=== PATIENT | male | born 1970 | race Caucasian/White ===

== ENCOUNTER 2017-07-15 04:19 | Emergency (ER) | payer MEDICAID ==
[~2017-07-15] VITALS: Ht 170.2 cm; Wt 82.0 kg
[~2017-07-15 04:19] MED LIST: ASPI-1159 PO; INSU3INS6 SQ; LISI40TA4 PO; LOVA40TA73 PO
[2017-07-15] MEDS ORDERED: SODIUM CHLORIDE 0.9% 1,000 ML IV ONE (05:15)
[2017-07-15] MEDS ORDERED: ONDANSETRON HCL 4MG/2ML VIAL IV STA (05:15)
[2017-07-15 05:34] LABS: BASOPHILS % 0.5 % (0.0-2.0); EOSINOPHILS % 0.1 % (0.0-5.0); HEMATOCRIT. 42.7 % (42.0-52.0); LYMPHOCYTES % 20.9 % (20.0-50.0); MEAN CORPUSCULAR HEMOGLOBIN 32.1 pg (28.0-32.0); MEAN CORPUSCULAR VOLUME 91.3 fL (80.0-94.0); MEAN PLATELET VOLUME 7.6 fl (7.4-10.4); MONOCYTES % 10.2 % (2.0-8.0); NEUTROPHILS % 68.3 % (40.0-76.0); PLATELET 205 x1000/uL (130-400); RED BLOOD CELL COUNT 4.67 mill/uL (4.7-6.1); RED CELL DISTRIBUTION WIDTH 13.6 % (11.6-14.6)
[2017-07-15 05:45] LABS: CARBON DIOXIDE 28 mEq/L (21-32); CHLORIDE 103 mEq/L (98-107)
[2017-07-15] MEDS ORDERED: LORAZEPAM 1MG TABLET PO ONE (05:45)
[2017-07-15] MEDS ORDERED: POTASSIUM CHLORIDE 20MEQ TABLET SR PO ONE (06:00)
[2017-07-15 06:25] VITALS: BP 165/91
== END 2017-07-15 06:26 | disposition home or self-care (01) ==
LOC: ER 04:34
DX: K29.20 Alcoholic gastritis without bleeding (principal); I10 Essential (primary) hypertension; E78.00 Pure hypercholesterolemia, unspecified; Z79.4 Long term (current) use of insulin; Z79.82 Long term (current) use of aspirin
CPT/HCPCS: 36415; 80053; 83690; 85025; 96361; 96374; 99284; J2405; J7030; Z7610

== ENCOUNTER 2018-10-17 10:53 | Inpatient (IN) | payer MEDICAID ==
[~2018-10-17] VITALS: Ht 177.8 cm; Wt 73.9 kg
[2018-10-17] MEDS ORDERED: SODIUM CHLORIDE 0.9% 1,000 ML IV ONE ×3 (11:15→21:30)
[2018-10-17] MEDS ORDERED: LORAZEPAM 2MG/ML CPJ IV ONE ×4 (11:15→21:15)
[2018-10-17 11:54] LABS: BASOPHILS % 0.1 % (0.0-2.0); HEMATOCRIT. 49.1 % (42.0-52.0); HEMOGLOBIN. 17.3 g/dL (14.0-18.0); LYMPHOCYTES % 10.7 % (20.0-50.0); MEAN CORPUSCULAR HEMOGLOBIN 32.8 pg (28.0-32.0); MEAN CORPUSCULAR VOLUME 93.2 fL (80.0-94.0); MEAN PLATELET VOLUME 8.9 fl (7.4-10.4); MONOCYTES % 4.9 % (2.0-8.0); NEUTROPHILS % 84.3 % (40.0-76.0); PLATELET 211 x1000/uL (130-400); RED BLOOD CELL COUNT 5.27 mill/uL (4.7-6.1); RED CELL DISTRIBUTION WIDTH 12.6 % (11.6-14.6)
[2018-10-17 12:06] LABS: CHLORIDE 95 mEq/L (98-107)
[2018-10-17 12:10] LABS: ETHANOL BLOOD 192 mg/dL
[2018-10-17] MEDS ORDERED: FOLIC ACID 1 MG, THIAMINE HCL 100 MG, MVI, ADULT NO.1 10 ML in DEXTROSE 5% WATER 1,000 ML IV ONE ×4 (12:30)
[2018-10-17] MEDS ORDERED: IBUPROFEN 400MG TABLET PO ONE (12:30)
[2018-10-17] MEDS ORDERED: POTASSIUM CHLORIDE 20MEQ TABLET SR PO ONE (12:30)
[2018-10-17 14:06] LABS: *BENZODIAZEPINES SCREEN URINE NEGATIVE (NEGATIVE); METHADONE URINE SCREEN NEGATIVE (NEGATIVE); OPIATES URINE SCREEN NEGATIVE (NEGATIVE)
[2018-10-17 14:07] LABS: CANNABINOID URINE SCREEN NEGATIVE (NEGATIVE)
[2018-10-17 14:08] LABS: *BARBITURATES SCREEN URINE NEGATIVE (NEGATIVE)
[2018-10-17 14:20] LABS: *COCAINE SCREEN URINE NEGATIVE (NEGATIVE)
[2018-10-17 14:22] LABS: *AMPHETAMINES SCREEN URINE PRESUMTIVE POSITIVE (NEGATIVE); PHENCYCLIDINE URINE SCREEN NEGATIVE (NEGATIVE)
[2018-10-17] MEDS ORDERED: ACETAMINOPHEN 325MG TABLET PO ONE (21:15)
[2018-10-17 21:24] LABS: CLARITY URINE CLEAR (CLEAR); COLOR URINE YELLOW (YELLOW); KETONES URINE 4+ (NEGATIVE); LEUKOCYTE ESTERASE URINE NEGATIVE (NEGATIVE); NITRITE URINE NEGATIVE (NEGATIVE); OCCULT BLOOD URINE 1+ (NEGATIVE); PH URINE 6.5 (4.5-8.0); PROTEIN URINE 2+ (NEGATIVE); SPECIFIC GRAVITY URINE 1.021 (1.005-1.030)
[2018-10-17] MEDS ORDERED: DOCUSATE SODIUM 100MG CAPSULE PO PRN (21:45)
[2018-10-17] MEDS ORDERED: HYDROCODONE/ACETAMINOPHEN 5/325MG TABLET PO PRN (21:45)
[2018-10-17] MEDS ORDERED: MAGNESIUM/ALUMINUM HYDROXIDE/SIMETHICONE 30ML UDC PO PRN (21:45)
[2018-10-17] MEDS ORDERED: ACETAMINOPHEN 325MG TABLET PO PRN (21:45)
[2018-10-17] MEDS ORDERED: ONDANSETRON HCL 4MG/2ML INJ IV PRN (21:45)
[2018-10-17] MEDS ORDERED: IPRATROPIUM/ALBUTEROL 0.5-3(2.5)MG/3ML NEB INH PRN (21:45)
[2018-10-18] VITALS (9 sets, daily range): BP systolic 112–150; BP diastolic 59–108
[2018-10-18] MEDS ORDERED: SODIUM CHLORIDE 0.9% 1,000 ML IV SCH (01:18)
[2018-10-18] MEDS: CHLORDIAZEPOXIDE 25MG CAPSULE PO SCH ×4 (01:21→21:16)
[2018-10-18] MEDS: CLONIDINE 0.1MG TABLET PO PRN ×2 (01:42→08:39)
[2018-10-18 02:14] LABS: CREATINE KINASE MB FRACTION 33.2 ng/mL (0.5-3.6)
[2018-10-18] MEDS: MULTIVITAMINS,THER W-MINERALS TABLET PO SCH (08:23)
[2018-10-18] MEDS: FOLIC ACID 1MG TABLET PO SCH (08:23)
[2018-10-18] MEDS: THIAMINE HCL 100MG TABLET PO SCH (08:23)
[2018-10-18] MEDS: ENOXAPARIN 40MG/0.4ML SYR SUBCUT SCH (08:49)
[2018-10-18] MEDS ORDERED: ONDANSETRON HCL 4MG/2ML INJ IM ONE (09:45)
[2018-10-18] MEDS ORDERED: ONDANSETRON HCL 4MG/2ML INJ IV ONE (10:00)
[2018-10-18 10:30] LABS: BASOPHILS % 0.3 % (0.0-2.0); HEMATOCRIT. 49.7 % (42.0-52.0); HEMOGLOBIN. 17.3 g/dL (14.0-18.0); LYMPHOCYTES % 31.9 % (20.0-50.0); MEAN CORPUSCULAR HEMOGLOBIN 33.1 pg (28.0-32.0); MEAN CORPUSCULAR VOLUME 94.8 fL (80.0-94.0); MEAN PLATELET VOLUME 8.9 fl (7.4-10.4); MONOCYTES % 6.4 % (2.0-8.0); NEUTROPHILS % 60.4 % (40.0-76.0); PLATELET 174 x1000/uL (130-400); RED BLOOD CELL COUNT 5.24 mill/uL (4.7-6.1)
[2018-10-18] MEDS ORDERED: INFLUENZA VIRUS VACCINE(AFLURIA) 0.5ML SYR IM ONE (10:30)
[2018-10-18] MEDS: LORAZEPAM 2MG/ML CPJ IV PRN ×2 (12:26→19:17)
[2018-10-18] MEDS ORDERED: DEXTROSE 50% WATER 50ML SYRINGE IV PRN (12:45)
[2018-10-18] MEDS: SODIUM CHLORIDE 0.9% 1,000 ML IV SCH ×2 (12:45→22:45)
[2018-10-18] MEDS: INSULIN LISPRO 100 UNITS/ML SUBCUT SCH ×3 (13:00→21:21)
[2018-10-18 13:35] LABS: CHLORIDE 91 mEq/L (98-107)
[2018-10-18 13:45] LABS: T4 FREE 1.17 ng/dL (0.76-1.46)
[2018-10-18 13:59] LABS: CREATINE KINASE MB FRACTION 30.8 ng/mL (0.5-3.6)
[2018-10-18] MEDS ORDERED: CHLORDIAZEPOXIDE 25MG CAPSULE PO SCH (14:00)
[2018-10-18 14:05] LABS: HDL CHOLESTEROL 98 mg/dL (40-59); LDL CHOLESTEROL 125 mg/dL (5-100)
[2018-10-18] MEDS: LISINOPRIL 40MG TABLET PO SCH (15:21)
[2018-10-18] MEDS: BLOOD SUGAR DIAGNOSTIC STRIP TEST SCH ×2 (17:58→21:21)
[2018-10-18] MEDS: AMLODIPINE 2.5MG TABLET PO SCH (21:16)
[2018-10-18] MEDS: METOPROLOL TARTRATE 25MG TABLET PO SCH (21:16)
[2018-10-18] MEDS: INSULIN GLARGINE UD 100 UNITS/ML SYR SUBCUT SCH (21:20)
[2018-10-19] VITALS (10 sets, daily range): BP systolic 91–135; BP diastolic 46–86
[2018-10-19] MEDS: CHLORDIAZEPOXIDE 25MG CAPSULE PO SCH ×2 (06:11→15:03)
[2018-10-19 06:12] LABS: CHLORIDE 95 mEq/L (98-107)
[2018-10-19 06:21] LABS: CREATINE KINASE 955 IU/L (39-308)
[2018-10-19 07:07] LABS: INR 1.1; PROTHROMBIN TIME 11.1 sec (9.1-11.1)
[2018-10-19] MEDS: INSULIN LISPRO 100 UNITS/ML SUBCUT SCH ×2 (08:00→13:00)
[2018-10-19] MEDS: BLOOD SUGAR DIAGNOSTIC STRIP TEST SCH ×2 (08:02→13:20)
[2018-10-19] MEDS: ENOXAPARIN 40MG/0.4ML SYR SUBCUT SCH (08:03)
[2018-10-19] MEDS: THIAMINE HCL 100MG TABLET PO SCH (08:12)
[2018-10-19] MEDS: FOLIC ACID 1MG TABLET PO SCH (08:12)
[2018-10-19] MEDS: MULTIVITAMINS,THER W-MINERALS TABLET PO SCH (08:12)
[2018-10-19] MEDS: LISINOPRIL 40MG TABLET PO SCH ×2 (08:12→08:14)
[2018-10-19] MEDS: AMLODIPINE 2.5MG TABLET PO SCH (08:13)
[2018-10-19] MEDS: METOPROLOL TARTRATE 25MG TABLET PO SCH (08:13)
[2018-10-19] MEDS: SODIUM CHLORIDE 0.9% 1,000 ML IV SCH (08:14)
[2018-10-19] MEDS: INSULIN GLARGINE UD 100 UNITS/ML SYR SUBCUT SCH (11:00)
[2018-10-19] MEDS ORDERED: AMLO2.5T45 PO (13:09)
[2018-10-19] MEDS ORDERED: THIA100T72 PO (13:09)
[2018-10-19] MEDS ORDERED: FOLI-43 PO (13:09)
[2018-10-19] MEDS ORDERED: LANTUSUD SUBCUT (13:09)
[2018-10-19] MEDS ORDERED: LISI40TA4 PO (13:09)
[2018-10-19] MEDS ORDERED: L25 PO (13:09)
== END 2018-10-19 16:20 | disposition home or self-care (01) | DRG 203 ==
LOC: ER 10:59 → 5EST 21:31 → EDBEDREQ 21:35 → CANRESERV 21:57 → ENRESERV 21:57 → EDBEDREQTM 10-18 00:29 → EDBEDREQSVC 10-18 00:29 → EDBEDREQDT 10-18 00:29 → ENRESERV 10-18 03:10 → 5EST 10-18 08:35
PROVIDERS: ADMIT Internal Medicine; ATTEND Internal Medicine
DX: R07.9 Chest pain, unspecified (principal); E87.2 Acidosis; M62.82 Rhabdomyolysis; K70.30 Alcoholic cirrhosis of liver without ascites; E87.6 Hypokalemia; F10.229 Alcohol dependence with intoxication, unspecified; F14.10 Cocaine abuse, uncomplicated; E11.9 Type 2 diabetes mellitus without complications; Z79.4 Long term (current) use of insulin; E78.00 Pure hypercholesterolemia, unspecified; E78.5 Hyperlipidemia, unspecified; Z79.899 Other long term (current) drug therapy; I11.9 Hypertensive heart disease without heart failure
CPT/HCPCS: 36415; 71045; 80048; 80061; 80076; 80305; 82550; 82553; 82962; 83036; 83605; 83735; 84439; 84443; 84481; 84484; 90686; 93005; 93306; 93970; 96365; 96375; 99285; G0482; J1650; J1815; J2060; J2405; J3411; J3490; J7030; J7070

== ENCOUNTER 2019-04-12 00:30 | Emergency (ER) | payer MEDICAID ==
[~2019-04-12] VITALS: Ht 198.1 cm; Wt 82.0 kg
[~2019-04-12 00:30] MED LIST changes: +AMLO2.5T45 PO; -ASPI-1159 PO; +ASPI-1393 PO; +FOLI-43 PO; -INSU3INS6 SQ; +L25 PO; +LANTUSUD SUBCUT; +THIA100T72 PO
[2019-04-12] MEDS ORDERED: MORPHINE SULFATE 4 MG/ML CPJ (NOT FOR IM USE) IV STA (01:50)
[2019-04-12] MEDS ORDERED: ONDANSETRON HCL 4MG/2ML INJ IV STA (01:50)
[2019-04-12] MEDS ORDERED: SODIUM CHLORIDE 0.9% 1,000 ML IV ONE (01:50)
[2019-04-12 02:17] LABS: *AMPHETAMINES SCREEN URINE NEGATIVE (NEGATIVE); *BARBITURATES SCREEN URINE NEGATIVE (NEGATIVE); *BENZODIAZEPINES SCREEN URINE PRESUMTIVE POSITIVE (NEGATIVE); *COCAINE SCREEN URINE NEGATIVE (NEGATIVE)
[2019-04-12 02:18] LABS: CANNABINOID URINE SCREEN NEGATIVE (NEGATIVE); METHADONE URINE SCREEN NEGATIVE (NEGATIVE); OPIATES URINE SCREEN NEGATIVE (NEGATIVE); PHENCYCLIDINE URINE SCREEN NEGATIVE (NEGATIVE)
[2019-04-12 02:22] LABS: BASOPHILS % 0.6 % (0.0-2.0); EOSINOPHILS % 0.5 % (0.0-5.0); HEMATOCRIT. 44.7 % (42.0-52.0); HEMOGLOBIN. 15.7 g/dL (14.0-18.0); LYMPHOCYTES % 39.9 % (20.0-50.0); MEAN CORPUSCULAR HEMOGLOBIN 33.4 pg (28.0-32.0); MEAN CORPUSCULAR VOLUME 95.1 fL (80.0-94.0); MEAN PLATELET VOLUME 7.6 fl (7.4-10.4); MONOCYTES % 11.8 % (2.0-8.0); NEUTROPHILS % 47.2 % (40.0-76.0); PLATELET 245 x1000/uL (130-400); RED CELL DISTRIBUTION WIDTH 13.9 % (11.6-14.6)
[2019-04-12 02:25] LABS: CHLORIDE 101 mEq/L (98-107)
[2019-04-12 02:29] LABS: INR 0.9; PROTHROMBIN TIME 9.5 sec (9.6-11.0)
[2019-04-12 03:08] LABS: ETHANOL BLOOD 326 mg/dL
[2019-04-12] MEDS ORDERED: CHLORDIAZEPOXIDE 25MG CAPSULE PO ONE (06:30)
[2019-04-12 08:32] VITALS: BP 124/88
== END 2019-04-12 08:38 | disposition home or self-care (01) ==
LOC: ER 00:30
DX: S09.8XXA Other specified injuries of head, initial encounter (principal); T51.91XA Toxic effect of unspecified alcohol, accidental (unintentional), initial encounter; F32.9 Major depressive disorder, single episode, unspecified; E11.9 Type 2 diabetes mellitus without complications; I10 Essential (primary) hypertension; E78.00 Pure hypercholesterolemia, unspecified; Z79.4 Long term (current) use of insulin; Z79.82 Long term (current) use of aspirin; Z79.899 Other long term (current) drug therapy; W19.XXXA Unspecified fall, initial encounter; Y92.89 Other specified places as the place of occurrence of the external cause; Y93.89 Activity, other specified; Y99.8 Other external cause status
CPT/HCPCS: 36415; 70450; 71045; 72125; 80053; 80305; 80307; 80320; 80329; 82962; 85025; 85610; 85730; 93005; 96374; 96375; 99284; J2270; J2405; J7030; Z7610; G0480

== ENCOUNTER 2019-05-02 02:33 | Emergency (ER) | payer MEDICAID ==
[~2019-05-02] VITALS: Ht 172.7 cm; Wt 81.0 kg
[2019-05-02] MEDS ORDERED: METOCLOPRAMIDE HCL 10MG/2ML VIAL IV STA (04:16)
[2019-05-02] MEDS ORDERED: MAGNESIUM/ALUMINUM HYDROXIDE/SIMETHICONE 30ML UDC PO STA (04:16)
[2019-05-02] MEDS ORDERED: SODIUM CHLORIDE 0.9% 1,000 ML IV ONE ×2 (04:16→05:01)
[2019-05-02 04:29] LABS: CLARITY URINE CLEAR (CLEAR); COLOR URINE YELLOW (YELLOW); KETONES URINE NEGATIVE (NEGATIVE); LEUKOCYTE ESTERASE URINE NEGATIVE (NEGATIVE); NITRITE URINE NEGATIVE (NEGATIVE); OCCULT BLOOD URINE NEGATIVE (NEGATIVE); PROTEIN URINE NEGATIVE (NEGATIVE); SPECIFIC GRAVITY URINE 1.002 (1.005-1.030); UROBILINOGEN URINE 0.2 E.U./dL (0.2-1.0)
[2019-05-02 04:38] LABS: BASOPHILS % 1.3 % (0.0-2.0); EOSINOPHILS % 0.1 % (0.0-5.0); HEMATOCRIT. 47.9 % (42.0-52.0); HEMOGLOBIN. 16.8 g/dL (14.0-18.0); LYMPHOCYTES % 28.9 % (20.0-50.0); MEAN CORPUSCULAR VOLUME 97.2 fL (80.0-94.0); MEAN PLATELET VOLUME 7.8 fl (7.4-10.4); MONOCYTES % 10.4 % (2.0-8.0); NEUTROPHILS % 59.3 % (40.0-76.0); PLATELET 260 x1000/uL (130-400); RED BLOOD CELL COUNT 4.93 mill/uL (4.7-6.1); RED CELL DISTRIBUTION WIDTH 14.8 % (11.6-14.6)
[2019-05-02 04:43] LABS: CHLORIDE 99 mEq/L (98-107)
[2019-05-02 04:48] LABS: ETHANOL BLOOD 136 mg/dL
[2019-05-02 04:53] LABS: *AMPHETAMINES SCREEN URINE NEGATIVE (NEGATIVE); *BARBITURATES SCREEN URINE NEGATIVE (NEGATIVE); *BENZODIAZEPINES SCREEN URINE NEGATIVE (NEGATIVE); *COCAINE SCREEN URINE NEGATIVE (NEGATIVE); METHADONE URINE SCREEN NEGATIVE (NEGATIVE)
[2019-05-02 04:54] LABS: CANNABINOID URINE SCREEN NEGATIVE (NEGATIVE); OPIATES URINE SCREEN NEGATIVE (NEGATIVE); PHENCYCLIDINE URINE SCREEN NEGATIVE (NEGATIVE)
[2019-05-02] MEDS ORDERED: LISINOPRIL 10MG TABLET PO ONE (06:00)
[2019-05-02] MEDS ORDERED: LORAZEPAM 1MG TABLET PO ONE (07:15)
[2019-05-02 08:26] VITALS: BP 154/98
== END 2019-05-02 08:31 | disposition home or self-care (01) ==
LOC: ER 02:33
DX: K29.20 Alcoholic gastritis without bleeding (principal); Y90.6 Blood alcohol level of 120-199 mg/100 ml; E11.9 Type 2 diabetes mellitus without complications; E78.00 Pure hypercholesterolemia, unspecified; I10 Essential (primary) hypertension; Z79.82 Long term (current) use of aspirin; Z79.4 Long term (current) use of insulin; Z79.899 Other long term (current) drug therapy
CPT/HCPCS: 36415; 80053; 80305; 80320; 81003; 82962; 83690; 85025; 93005; 96361; 96374; 99284; J2765; J7030; Z7610; G0480

== ENCOUNTER 2019-05-02 09:13 | Inpatient (IN) | payer MEDICAID ==
[~2019-05-02] VITALS: Ht 182.9 cm; Wt 81.6 kg
[2019-05-02] MEDS ORDERED: SODIUM CHLORIDE 0.9% 1,000 ML IV ONE (10:22)
[2019-05-02] MEDS ORDERED: FOLIC ACID 1 MG, THIAMINE HCL 100 MG, MVI, ADULT NO.1 10 ML in DEXTROSE 5% WATER 1,000 ML IV ONE ×4 (10:30)
[2019-05-02] MEDS ORDERED: LORAZEPAM 2MG/ML CPJ IV ONE ×2 (10:30→14:30)
[2019-05-02 10:46] LABS: BASOPHILS % 1.2 % (0.0-2.0); EOSINOPHILS % 0.2 % (0.0-5.0); HEMATOCRIT. 46.8 % (42.0-52.0); HEMOGLOBIN. 16.1 g/dL (14.0-18.0); LYMPHOCYTES % 19.1 % (20.0-50.0); MEAN CORPUSCULAR HEMOGLOBIN 33.5 pg (28.0-32.0); MEAN CORPUSCULAR VOLUME 97.2 fL (80.0-94.0); MEAN PLATELET VOLUME 8.1 fl (7.4-10.4); MONOCYTES % 11.9 % (2.0-8.0); NEUTROPHILS % 67.6 % (40.0-76.0); PLATELET 257 x1000/uL (130-400); RED BLOOD CELL COUNT 4.81 mill/uL (4.7-6.1); RED CELL DISTRIBUTION WIDTH 15.2 % (11.6-14.6)
[2019-05-02 10:48] LABS: CHLORIDE 99 mEq/L (98-107)
[2019-05-02 10:52] LABS: ETHANOL BLOOD < 10 mg/dL
[2019-05-02] MEDS ORDERED: POTASSIUM CHLORIDE 20MEQ TABLET SR PO ONE (12:15)
[2019-05-02 12:52] LABS: CLARITY URINE CLEAR (CLEAR); COLOR URINE YELLOW (YELLOW); KETONES URINE 2+ (NEGATIVE); LEUKOCYTE ESTERASE URINE NEGATIVE (NEGATIVE); NITRITE URINE NEGATIVE (NEGATIVE); OCCULT BLOOD URINE NEGATIVE (NEGATIVE); PH URINE 7.5 (4.5-8.0); PROTEIN URINE NEGATIVE (NEGATIVE); SPECIFIC GRAVITY URINE 1.008 (1.005-1.030)
[2019-05-02 13:06] LABS: *AMPHETAMINES SCREEN URINE NEGATIVE (NEGATIVE); *BARBITURATES SCREEN URINE NEGATIVE (NEGATIVE); *BENZODIAZEPINES SCREEN URINE NEGATIVE (NEGATIVE); *COCAINE SCREEN URINE NEGATIVE (NEGATIVE); METHADONE URINE SCREEN NEGATIVE (NEGATIVE); OPIATES URINE SCREEN NEGATIVE (NEGATIVE)
[2019-05-02 13:07] LABS: CANNABINOID URINE SCREEN NEGATIVE (NEGATIVE); PHENCYCLIDINE URINE SCREEN NEGATIVE (NEGATIVE)
[2019-05-02] MEDS ORDERED: CLONIDINE 0.1MG TABLET PO PRN (15:45)
[2019-05-02] MEDS ORDERED: DEXTROSE 50% WATER 50ML SYRINGE IV PRN (16:00)
[2019-05-02 20:00] VITALS: BP 149/111
[2019-05-02] MEDS ORDERED: FOLIC ACID 1 MG, THIAMINE HCL 100 MG, MVI, ADULT NO.1 10 ML in DEXTROSE 5% WATER 1,000 ML IV SCH ×4 (20:00)
[2019-05-02] MEDS: AMLODIPINE 5MG TABLET PO SCH (21:26)
[2019-05-02] MEDS: INSULIN LISPRO 100 UNITS/ML SUBCUT SCH (21:26)
[2019-05-02] MEDS: BLOOD SUGAR DIAGNOSTIC STRIP TEST SCH (21:27)
[2019-05-02] MEDS: CHLORDIAZEPOXIDE 25MG CAPSULE PO SCH (21:27)
[2019-05-03] VITALS: BP 127/98
[2019-05-03 04:00] VITALS: BP 130/94
[2019-05-03] MEDS: CHLORDIAZEPOXIDE 25MG CAPSULE PO SCH ×3 (05:36→21:05)
[2019-05-03] MEDS: INSULIN LISPRO 100 UNITS/ML SUBCUT SCH ×4 (05:47→21:06)
[2019-05-03] MEDS: BLOOD SUGAR DIAGNOSTIC STRIP TEST SCH ×4 (05:47→21:06)
[2019-05-03 06:30] LABS: BASOPHILS % 0.5 % (0.0-2.0); EOSINOPHILS % 0.9 % (0.0-5.0); HEMATOCRIT. 49.6 % (42.0-52.0); HEMOGLOBIN. 16.9 g/dL (14.0-18.0); LYMPHOCYTES % 31.7 % (20.0-50.0); MEAN CORPUSCULAR HEMOGLOBIN 33.4 pg (28.0-32.0); MEAN CORPUSCULAR VOLUME 98.1 fL (80.0-94.0); MEAN PLATELET VOLUME 8.2 fl (7.4-10.4); MONOCYTES % 11.2 % (2.0-8.0); NEUTROPHILS % 55.7 % (40.0-76.0); PLATELET 214 x1000/uL (130-400); RED BLOOD CELL COUNT 5.05 mill/uL (4.7-6.1); RED CELL DISTRIBUTION WIDTH 14.6 % (11.6-14.6)
[2019-05-03 07:29] LABS: CHLORIDE 96 mEq/L (98-107)
[2019-05-03 08:00] VITALS: BP 129/93
[2019-05-03] MEDS: SODIUM CHLORIDE 0.9% 1,000 ML IV SCH ×2 (08:28→16:45)
[2019-05-03] MEDS: AMLODIPINE 5MG TABLET PO SCH ×2 (08:35→21:05)
[2019-05-03] MEDS: ONDANSETRON HCL 4MG/2ML INJ IV PRN (10:23)
[2019-05-03] MEDS: LORAZEPAM 2MG/ML CPJ IV PRN ×2 (11:42→23:21)
[2019-05-03 12:00] VITALS: BP 139/97
[2019-05-03 16:00] VITALS: BP 131/96
[2019-05-03 20:00] VITALS: BP 135/92
[2019-05-03] MEDS ORDERED: FOLIC ACID 1 MG, THIAMINE HCL 100 MG, MVI, ADULT NO.1 10 ML in DEXTROSE 5% WATER 1,000 ML IV SCH ×4 (22:00)
[2019-05-04] VITALS: BP 127/86
[2019-05-04 04:00] VITALS: BP 110/82
[2019-05-04] MEDS: CHLORDIAZEPOXIDE 25MG CAPSULE PO SCH (05:48)
[2019-05-04] MEDS: BLOOD SUGAR DIAGNOSTIC STRIP TEST SCH ×2 (06:19→13:15)
[2019-05-04] MEDS: INSULIN LISPRO 100 UNITS/ML SUBCUT SCH ×2 (06:19→12:40)
[2019-05-04 08:00] VITALS: BP 112/84
[2019-05-04] MEDS: ONDANSETRON HCL 4MG/2ML INJ IV PRN (08:18)
[2019-05-04] MEDS: AMLODIPINE 5MG TABLET PO SCH (08:56)
[2019-05-04] MEDS: SODIUM CHLORIDE 0.9% 1,000 ML IV SCH (09:51)
[2019-05-04 12:00] VITALS: BP 129/89
[2019-05-04 12:09] VITALS: BP 129/89
== END 2019-05-04 13:55 | disposition home or self-care (01) | DRG 425 ==
LOC: ER 09:13 → EDBEDREQ 10:29 → 8WST 15:05 → EDBEDREQ 15:07 → ENRESERV 15:36 → CANRESERV 16:23
PROVIDERS: ADMIT Internal Medicine; ATTEND Internal Medicine
DX: E87.6 Hypokalemia (principal); E11.9 Type 2 diabetes mellitus without complications; F10.10 Alcohol abuse, uncomplicated; E78.00 Pure hypercholesterolemia, unspecified; E78.5 Hyperlipidemia, unspecified; F32.9 Major depressive disorder, single episode, unspecified; I10 Essential (primary) hypertension; R74.0 Nonspecific elevation of levels of transaminase and lactic acid dehydrogenase [LDH]; Y90.0 Blood alcohol level of less than 20 mg/100 ml; Z79.4 Long term (current) use of insulin; Z79.899 Other long term (current) drug therapy; Z79.82 Long term (current) use of aspirin
CPT/HCPCS: 36415; 71045; 80048; 80305; 80320; 82962; 93005; 99291; J1815; J2060; J2405; J3411; J3490; J7030; J7040; J7070; G0480

== ENCOUNTER 2019-05-15 13:48 | Emergency (ER) | payer MEDICAID ==
[~2019-05-15] VITALS: Ht 177.8 cm; Wt 72.0 kg
[~2019-05-15 13:48] MED LIST changes: -LANTUSUD SUBCUT; -LOVA40TA73 PO
[2019-05-15 15:50] LABS: BASOPHILS % 0.9 % (0.0-2.0); EOSINOPHILS % 1.4 % (0.0-5.0); HEMATOCRIT. 45.6 % (42.0-52.0); HEMOGLOBIN. 15.8 g/dL (14.0-18.0); LYMPHOCYTES % 45.5 % (20.0-50.0); MEAN CORPUSCULAR HEMOGLOBIN 34.1 pg (28.0-32.0); MEAN CORPUSCULAR VOLUME 98.7 fL (80.0-94.0); MEAN PLATELET VOLUME 7.8 fl (7.4-10.4); NEUTROPHILS % 43.2 % (40.0-76.0); PLATELET 238 x1000/uL (130-400); RED BLOOD CELL COUNT 4.62 mill/uL (4.7-6.1); RED CELL DISTRIBUTION WIDTH 14.6 % (11.6-14.6)
[2019-05-15 15:56] LABS: CHLORIDE 102 mEq/L (98-107)
[2019-05-15 16:41] LABS: ETHANOL BLOOD 333 mg/dL
[2019-05-15] MEDS ORDERED: LORAZEPAM 1MG TABLET PO ONE (17:00)
[2019-05-15 17:03] LABS: CLARITY URINE CLEAR (CLEAR); COLOR URINE YELLOW (YELLOW); KETONES URINE TRACE (NEGATIVE); LEUKOCYTE ESTERASE URINE NEGATIVE (NEGATIVE); NITRITE URINE NEGATIVE (NEGATIVE); OCCULT BLOOD URINE NEGATIVE (NEGATIVE); PROTEIN URINE NEGATIVE (NEGATIVE); SPECIFIC GRAVITY URINE 1.009 (1.005-1.030); UROBILINOGEN URINE 0.2 E.U./dL (0.2-1.0)
[2019-05-15 17:19] LABS: *BENZODIAZEPINES SCREEN URINE PRESUMTIVE POSITIVE (NEGATIVE); *COCAINE SCREEN URINE NEGATIVE (NEGATIVE); METHADONE URINE SCREEN NEGATIVE (NEGATIVE); OPIATES URINE SCREEN NEGATIVE (NEGATIVE)
[2019-05-15 17:20] LABS: *AMPHETAMINES SCREEN URINE NEGATIVE (NEGATIVE); *BARBITURATES SCREEN URINE NEGATIVE (NEGATIVE); CANNABINOID URINE SCREEN NEGATIVE (NEGATIVE); PHENCYCLIDINE URINE SCREEN NEGATIVE (NEGATIVE)
[2019-05-15 19:05] VITALS: BP 124/78
== END 2019-05-15 19:06 | disposition home or self-care (01) ==
LOC: ER 13:48
DX: F32.9 Major depressive disorder, single episode, unspecified (principal); F10.10 Alcohol abuse, uncomplicated; R45.851 Suicidal ideations; E11.9 Type 2 diabetes mellitus without complications; E78.00 Pure hypercholesterolemia, unspecified; I10 Essential (primary) hypertension; Z79.899 Other long term (current) drug therapy; Z79.82 Long term (current) use of aspirin; Y90.8 Blood alcohol level of 240 mg/100 ml or more
CPT/HCPCS: 36415; 80305; 80307; 80320; 80329; 99284; G0480

== ENCOUNTER 2019-05-17 14:15 | Emergency (ER) | payer MEDICAID ==
[~2019-05-17] VITALS: Ht 172.7 cm; Wt 75.0 kg
[2019-05-17 15:15] LABS: BASOPHILS % 1.1 % (0.0-2.0); HEMATOCRIT. 45.3 % (42.0-52.0); HEMOGLOBIN. 15.7 g/dL (14.0-18.0); LYMPHOCYTES % 57.8 % (20.0-50.0); MEAN CORPUSCULAR VOLUME 97.9 fL (80.0-94.0); MEAN PLATELET VOLUME 7.7 fl (7.4-10.4); MONOCYTES % 10.6 % (2.0-8.0); NEUTROPHILS % 29.5 % (40.0-76.0); PLATELET 243 x1000/uL (130-400); RED BLOOD CELL COUNT 4.63 mill/uL (4.7-6.1); RED CELL DISTRIBUTION WIDTH 14.7 % (11.6-14.6)
[2019-05-17 15:16] LABS: CHLORIDE 100 mEq/L (98-107)
[2019-05-17 18:29] VITALS: BP 148/93
== END 2019-05-17 19:19 | disposition left against medical advice (07) ==
LOC: ER 14:15
DX: F10.129 Alcohol abuse with intoxication, unspecified (principal); Y90.8 Blood alcohol level of 240 mg/100 ml or more; R07.9 Chest pain, unspecified; I10 Essential (primary) hypertension; E11.9 Type 2 diabetes mellitus without complications; E78.5 Hyperlipidemia, unspecified; Z79.82 Long term (current) use of aspirin
CPT/HCPCS: 36415; 71045; 80320; 83880; 84484; 93005; 99284; G0480

== ENCOUNTER 2020-10-31 21:21 | Inpatient (IN) | payer MEDICAID ==
[~2020-10-31] VITALS: Ht 182.9 cm; Wt 68.9 kg
[~2020-10-31 21:21] MED LIST changes: -ASPI-1393 PO; +ASPI-1497 PO
[2020-10-31] MEDS ORDERED: ACETAMINOPHEN 325MG TABLET PO STA (22:34)
[2020-10-31] MEDS ORDERED: VISCOUS LIDOCAINE 2% 15 ML UDC PO ONE (22:45)
[2020-10-31] MEDS ORDERED: MAGNESIUM/ALUMINUM HYDROXIDE/SIMETHICONE 30ML UDC PO ONE (22:45)
[2020-10-31] MEDS ORDERED: FAMOTIDINE 20MG TABLET PO ONE (22:45)
[2020-11-01] MEDS ORDERED: SODIUM CHLORIDE 0.9% 1,000 ML IV ONE ×2 (01:15→04:45)
[2020-11-01] MEDS ORDERED: MORPHINE SULFATE 4 MG/ML CPJ (NOT FOR IM USE) IV ONE (02:15)
[2020-11-01] MEDS ORDERED: ONDANSETRON HCL 4MG/2ML INJ IV ONE (02:45)
[2020-11-01 03:27] LABS: CHLORIDE 90 mEq/L (98-107)
[2020-11-01 03:41] LABS: BETA HYDROXYBUTYRATE 5.8 mMol/L (0.0-0.3)
[2020-11-01 03:42] LABS: BASOPHILS % 0.3 % (0.0-2.0); HEMATOCRIT. 45.4 % (42.0-52.0); HEMOGLOBIN. 15.7 g/dL (14.0-18.0); LYMPHOCYTES % 28.3 % (20.0-50.0); MEAN CORPUSCULAR HEMOGLOBIN 33.3 pg (28.0-32.0); MEAN CORPUSCULAR VOLUME 96.1 fL (80.0-94.0); MEAN PLATELET VOLUME 9.6 fl (7.4-10.4); MONOCYTES % 7.9 % (2.0-8.0); NEUTROPHILS % 63.5 % (40.0-76.0); PLATELET 192 x1000/uL (130-400); RED BLOOD CELL COUNT 4.73 mill/uL (4.7-6.1); RED CELL DISTRIBUTION WIDTH 12.8 % (11.6-14.6)
[2020-11-01] MEDS ORDERED: INSULIN REGULAR (DRIP) 100 UNITS in SODIUM CHLORIDE 0.9% 99 ML IV ONE (04:45)
[2020-11-01] MEDS ORDERED: POTASSIUM CHLORIDE 20MEQ TABLET SR PO ONE (04:45)
[2020-11-01] MEDS ORDERED: INSULIN REGULAR (DRIP) 100 UNITS in SODIUM CHLORIDE 0.9% 99 ML IV NR (05:00)
[2020-11-01] MEDS ORDERED: DEXT 5%/0.9% NACL 500 ML IV ONE (06:00)
[2020-11-01] MEDS: PANTOPRAZOLE SODIUM 40 MG/VIAL IV SCH (09:00)
[2020-11-01] MEDS: BLOOD SUGAR DIAGNOSTIC STRIP TEST SCH ×4 (09:00→21:00)
[2020-11-01] MEDS ORDERED: ACETAMINOPHEN 325MG TABLET PO PRN ×2 (09:00)
[2020-11-01] MEDS ORDERED: GUAIFENESIN 200MG/10ML SUGAR FREE UDC PO PRN (09:00)
[2020-11-01] MEDS ORDERED: IPRATROPIUM/ALBUTEROL 0.5-3(2.5)MG/3ML NEB NEB PRN (09:00)
[2020-11-01] MEDS ORDERED: CLONIDINE 0.1MG TABLET PO PRN (09:00)
[2020-11-01] MEDS ORDERED: ONDANSETRON HCL 4MG/2ML INJ IV PRN (09:00)
[2020-11-01] MEDS ORDERED: NITROGLYCERIN 0.4MG TABLET SL SL PRN (09:00)
[2020-11-01] MEDS ORDERED: DOCUSATE SODIUM 100MG CAPSULE PO PRN (09:00)
[2020-11-01] MEDS: SUCRALFATE 1 G/10 ML UDC PO SCH ×4 (09:00→20:48)
[2020-11-01] MEDS ORDERED: DEXTROSE 50% WATER 50ML SYRINGE IV PRN (09:00)
[2020-11-01] MEDS ORDERED: MAGNESIUM/ALUMINUM HYDROXIDE/SIMETHICONE 30ML UDC PO PRN (09:00)
[2020-11-01 09:20] LABS: CHLORIDE 97 mEq/L (98-107)
[2020-11-01 09:26] LABS: PHOSPHORUS 1.6 mg/dL (2.5-4.9)
[2020-11-01] MEDS: ENOXAPARIN 40MG/0.4ML SYR SUBCUT SCH (10:13)
[2020-11-01 11:30] VITALS: BP 124/82
[2020-11-01] MEDS ORDERED: CEFTRIAXONE 1 G PREMIX 50 ML IV NR (11:30)
[2020-11-01 11:50] VITALS: BP 124/82
[2020-11-01] MEDS ORDERED: POTASSIUM PHOS,M-BASIC-D-BASIC 20 MMOL in DEXT 5% WATER 243.3333 ML IV NR (13:00)
[2020-11-01] MEDS: INSULIN LISPRO 100 UNITS/ML SUBCUT SCH ×5 (13:59→22:19)
[2020-11-01] MEDS ORDERED: CEFTRIAXONE 1,000 MG in DEXTROSE 5% WATER 50 ML IV NR (14:00)
[2020-11-01 16:14] VITALS: BP 130/62
[2020-11-01 16:18] LABS: CLARITY URINE CLEAR (CLEAR); COLOR URINE YELLOW (YELLOW); KETONES URINE 4+ (NEGATIVE); LEUKOCYTE ESTERASE URINE NEGATIVE (NEGATIVE); NITRITE URINE NEGATIVE (NEGATIVE); OCCULT BLOOD URINE NEGATIVE (NEGATIVE); PH URINE 5.5 (4.5-8.0); PROTEIN URINE TRACE (NEGATIVE); SPECIFIC GRAVITY URINE 1.019 (1.005-1.030); UROBILINOGEN URINE 0.2 E.U./dL (0.2-1.0)
[2020-11-01 17:36] LABS: CREATINE KINASE 486 IU/L (39-308)
[2020-11-01 17:39] LABS: CREATINE KINASE MB FRACTION 12.6 ng/mL (0.5-3.6)
[2020-11-01] MEDS ORDERED: ZOLPIDEM TARTRATE 5MG TABLET PO PRN (21:00)
[2020-11-01] MEDS ORDERED: INSULIN GLARGINE UD 100 UNITS/ML SYR SUBCUT SCH (22:00)
[2020-11-02] VITALS: BP 125/75
[2020-11-02 04:00] VITALS: BP 142/96
[2020-11-02 06:02] LABS: CHLORIDE 99 mEq/L (98-107)
[2020-11-02 06:12] LABS: PHOSPHORUS 3.2 mg/dL (2.5-4.9)
[2020-11-02 06:13] LABS: BASOPHILS % 0.5 % (0.0-2.0); EOSINOPHILS % 0.5 % (0.0-5.0); HEMOGLOBIN. 15.5 g/dL (14.0-18.0); MEAN CORPUSCULAR HEMOGLOBIN 33.7 pg (28.0-32.0); MEAN CORPUSCULAR VOLUME 95.7 fL (80.0-94.0); MEAN PLATELET VOLUME 9.4 fl (7.4-10.4); MONOCYTES % 10.4 % (2.0-8.0); NEUTROPHILS % 45.6 % (40.0-76.0); PLATELET 182 x1000/uL (130-400); RED CELL DISTRIBUTION WIDTH 12.6 % (11.6-14.6)
[2020-11-02] MEDS: BLOOD SUGAR DIAGNOSTIC STRIP TEST SCH ×2 (07:18→12:33)
[2020-11-02] MEDS ORDERED: CEFTRIAXONE 1,000 MG in DEXTROSE 5% WATER 50 ML IV SCH ×2 (09:00→11:00)
[2020-11-02] MEDS: SUCRALFATE 1 G/10 ML UDC PO SCH ×2 (09:10→12:20)
[2020-11-02] MEDS: PANTOPRAZOLE SODIUM 40 MG/VIAL IV SCH (09:10)
[2020-11-02] MEDS: ENOXAPARIN 40MG/0.4ML SYR SUBCUT SCH (09:11)
[2020-11-02] MEDS: INSULIN LISPRO 100 UNITS/ML SUBCUT SCH ×4 (09:23→12:32)
[2020-11-02 11:11] VITALS: BP 146/96
== END 2020-11-02 12:00 | disposition home or self-care (01) | DRG 420 ==
LOC: ER 21:21 → 6EST 11-01 05:49 → EDBEDREQTM 11-01 06:31 → EDBEDREQ 11-01 06:31 → EDBEDREQSVC 11-01 06:31 → ENRESERV 11-01 10:11
PROVIDERS: ADMIT Internal Medicine; ATTEND Internal Medicine
DX: E11.10 Type 2 diabetes mellitus with ketoacidosis without coma (principal); E87.1 Hypo-osmolality and hyponatremia; F41.9 Anxiety disorder, unspecified; F32.9 Major depressive disorder, single episode, unspecified; K29.70 Gastritis, unspecified, without bleeding; Z91.14 Patient's other noncompliance with medication regimen; Z79.899 Other long term (current) drug therapy; Z79.4 Long term (current) use of insulin
CPT/HCPCS: 36415; 71045; 76700; 80053; 81003; 82010; 82550; 82553; 82962; 83036; 83735; 83880; 84100; 84484; 85025; 87077; 87186; 93005; 93970; 99285; C9113; J0696; J1650; J1815; J2270; J2405; J3490; J7030; J7040; J7042; J7050; J7060

== ENCOUNTER 2021-04-13 10:51 | Emergency (ER) | payer MEDICAID ==
[~2021-04-13] VITALS: Ht 170.2 cm; Wt 68.0 kg
[~2021-04-13 10:51] MED LIST changes: +LISI40TA13 PO; -LISI40TA4 PO
[2021-04-13 11:26] LABS: BASOPHILS % 0.3 % (0.0-2.0); EOSINOPHILS % 0.2 % (0.0-5.0); HEMATOCRIT. 46.1 % (42.0-52.0); HEMOGLOBIN. 16.1 g/dL (14.0-18.0); LYMPHOCYTES % 35.8 % (20.0-50.0); MEAN CORPUSCULAR HEMOGLOBIN 33.3 pg (28.0-32.0); MEAN CORPUSCULAR VOLUME 95.4 fL (80.0-94.0); MEAN PLATELET VOLUME 8.4 fl (7.4-10.4); MONOCYTES % 5.6 % (2.0-8.0); NEUTROPHILS % 58.1 % (40.0-76.0); PLATELET 242 x1000/uL (130-400); RED BLOOD CELL COUNT 4.84 mill/uL (4.7-6.1); RED CELL DISTRIBUTION WIDTH 12.8 % (11.6-14.6)
[2021-04-13] MEDS ORDERED: KETOROLAC 30MG/ML VIAL IV ONE (11:30)
[2021-04-13 11:31] LABS: CHLORIDE 95 mEq/L (98-107)
[2021-04-13 11:57] LABS: ETHANOL BLOOD 406 mg/dL
[2021-04-13 13:17] VITALS: BP 135/70
== END 2021-04-13 13:39 | disposition home or self-care (01) ==
LOC: ER 10:51
DX: F10.229 Alcohol dependence with intoxication, unspecified (principal); I10 Essential (primary) hypertension; E78.00 Pure hypercholesterolemia, unspecified; F41.9 Anxiety disorder, unspecified; F32.9 Major depressive disorder, single episode, unspecified; E11.9 Type 2 diabetes mellitus without complications; Y90.8 Blood alcohol level of 240 mg/100 ml or more; Z86.73 Personal history of transient ischemic attack (TIA), and cerebral infarction without residual deficits; Z79.82 Long term (current) use of aspirin
CPT/HCPCS: 36415; 71045; 80053; 80320; 82962; 83880; 84484; 85025; 93005; 96374; 99285; J1885; G0480

== ENCOUNTER 2021-04-20 10:24 | Emergency (ER) | payer MEDICAID ==
[~2021-04-20] VITALS: Ht 182.9 cm; Wt 82.0 kg
[2021-04-20] MEDS ORDERED: SODIUM CHLORIDE 0.9% 1,000 ML IV ONE (10:30)
[2021-04-20 11:22] LABS: BASOPHILS % 0.2 % (0.0-2.0); EOSINOPHILS % 0.5 % (0.0-5.0); HEMOGLOBIN. 15.7 g/dL (14.0-18.0); LYMPHOCYTES % 25.8 % (20.0-50.0); MEAN CORPUSCULAR HEMOGLOBIN 33.4 pg (28.0-32.0); MEAN CORPUSCULAR VOLUME 95.5 fL (80.0-94.0); MEAN PLATELET VOLUME 7.8 fl (7.4-10.4); NEUTROPHILS % 65.5 % (40.0-76.0); PLATELET 186 x1000/uL (130-400); RED BLOOD CELL COUNT 4.71 mill/uL (4.7-6.1); RED CELL DISTRIBUTION WIDTH 13.1 % (11.6-14.6)
[2021-04-20 11:31] LABS: CHLORIDE 99 mEq/L (98-107)
[2021-04-20 11:47] LABS: ETHANOL BLOOD 369 mg/dL
[2021-04-20 11:56] LABS: CLARITY URINE CLEAR (CLEAR); COLOR URINE YELLOW (YELLOW); KETONES URINE NEGATIVE (NEGATIVE); LEUKOCYTE ESTERASE URINE NEGATIVE (NEGATIVE); NITRITE URINE NEGATIVE (NEGATIVE); OCCULT BLOOD URINE NEGATIVE (NEGATIVE); PROTEIN URINE NEGATIVE (NEGATIVE); SPECIFIC GRAVITY URINE 1.009 (1.005-1.030); UROBILINOGEN URINE 0.2 E.U./dL (0.2-1.0)
[2021-04-20 12:06] LABS: *AMPHETAMINES SCREEN URINE NEGATIVE (NEGATIVE); *BARBITURATES SCREEN URINE NEGATIVE (NEGATIVE); CANNABINOID URINE SCREEN NEGATIVE (NEGATIVE)
[2021-04-20 12:07] LABS: *BENZODIAZEPINES SCREEN URINE PRESUMTIVE POSITIVE (NEGATIVE); *COCAINE SCREEN URINE NEGATIVE (NEGATIVE); METHADONE URINE SCREEN NEGATIVE (NEGATIVE)
[2021-04-20 12:11] LABS: OPIATES URINE SCREEN NEGATIVE (NEGATIVE)
[2021-04-20 12:20] VITALS: BP 139/87
[2021-04-20 12:21] LABS: PHENCYCLIDINE URINE SCREEN NEGATIVE (NEGATIVE)
== END 2021-04-20 12:20 | disposition left against medical advice (07) ==
LOC: ER 10:35
DX: F10.129 Alcohol abuse with intoxication, unspecified (principal); Y90.8 Blood alcohol level of 240 mg/100 ml or more; F41.9 Anxiety disorder, unspecified; F32.9 Major depressive disorder, single episode, unspecified; E11.9 Type 2 diabetes mellitus without complications; Z79.82 Long term (current) use of aspirin
CPT/HCPCS: 36415; 80053; 80305; 80320; 81003; 85025; 99283; J7030; G0480